=== PATIENT | female | born 1950 | race Caucasian/White ===

== ENCOUNTER 2019-06-15 10:12 | Emergency (ER) | payer OTHER, SELFPAY ==
[2019-06-15 10:35] VITALS: BP 173/93; PULSE 54; RESP 13; TEMP 36.3; O2SAT 96
--- NOTE | 2019-06-15 10:36 | DI.RAD.S_ITS ---
PROCEDURE: XR ANKLE RT MIN 3V INDICATIONS: injury TECHNIQUE: 3 views of the ankle were acquired. COMPARISON: None. FINDINGS: Bones: There is minimally displaced fracture seen involving the distal lateral malleolus. No additional fractures are detected. Age-appropriate bony degenerative changes are seen. The talar dome demonstrates no pati abnormality. Soft tissues: No soft tissue swelling is seen. IMPRESSION: Nondisplaced distal lateral malleolar fracture seen. Dictated by: Alfie Solares M.D. on 06/15/2019 at 10:12 Approved by: Alfie Solares M.D. on 06/15/2019 at 10:13
--- NOTE | 2019-06-15 11:42 | ED_ITS ---
HPI - Extremity Injury (Lower) <DOMINIK Fortune - Last Filed: 06/15/19 12:38> General Chief Complaint: Extremity Injury, Lower Stated Complaint: right ankle might be broke happened on 06/13/19 Time Seen by Provider: 06/15/19 11:00 Source: patient Mode of arrival: Ambulatory Limitations: no limitations History of Present Illness HPI Narrative: The patient is a 69-year-old female nonsmoker with history of myasthenia gravis diagnosed 2 days ago who presents with a chief complaint of right ankle pain. 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 She states that her right ankle hurts, especially in the outside. She denies any previous injuries to her ankle. She has been using ice and Tylenol she states her pain is very well controlled with Tylenol. She has been using an old air splint that she found, as well as a ski pole for support. She denies hitting her head any neck or back pain or any other injuries from the fall. She has taken Tylenol and Motrin, applied ice. She is concerned that it is still hurting so she came to the emergency department. She states that she felt many pops and cracks. She states that she has extensive bruising on her right lower leg Review of Systems <TONY Fortune - Last Filed: 06/15/19 12:38> Review of Systems Narrative: GENERAL: Denies chills, fatigue, malaise, fever, sweats. HEENT: Denies sinus pain, ear pain, sore throat, difficulty swallowing, dizziness. RESPIRATORY: Denies dyspnea, cough, wheezing, hemoptysis, sputum. CARDIOVASCULAR: Denies chest pain, palpitations, orthopnea, edema, GASTROINTESTINAL: Denies nausea, vomiting, abdominal pain, diarrhea, constipation, melena. : Denies dysuria, frequency, incontinence, hematuria, urinary retention. MUSCULOSKELETAL: See HPI SKIN: See HPI NEUROLOGIC: Denies weakness, headache, numbness, change in speech, confusion, seizures, incoordination. PSYCHIATRIC: No concerning psychosocial issues. 12 point review of systems is negative except for those stated above Patient History <DOMINIK Fortune - Last Filed: 06/15/19 12:38> Medical History Myasthenia gravis (Acute) Exam <DOMINIK Fortune - Last Filed: 06/15/19 12:38> Narrative Exam Narrative: GENERAL: This is a well-nourished, well-developed patient, in no acute distress HEAD: Atraumatic. Normocephalic. No temporal or scalp tenderness. EYES: Pupils equal round and reactive. Extraocular motions intact. No scleral icterus. No injection or drainage. ENT: Nose without bleeding, purulent drainage or septal hematoma. Throat without erythema, tonsillar hypertrophy or exudate. Uvula midline. Airway patent. NECK: Trachea midline. No JVD or lymphadenopathy. Supple, nontender, no meningeal signs. CARDIOVASCULAR: Regular rate and rhythm RESPIRATORY: No cough. No increased respiratory effort. No accessory muscle use. EXTREMITIES: General pain to palpation lateral aspect of right ankle. Able to flex and extend right ankle, the reduced range of motion. Positive pedal pulses. Slight edema noted. BACK: Nontender without deformity or crepitance. No flank tenderness. NEURO: AOx3. Interactive. Age appropriate. SKIN: Diffuse ecchymosis noted over lateral aspect of right ankle, no laceration or abrasion. Skin is intact. Initial Vital Signs Initial Vital Signs: Vital Signs Temperature 97.4 F L 06/15/19 10:35 Pulse Rate 54 L 06/15/19 10:35 Respiratory Rate 13 06/15/19 10:35 Blood Pressure 173/93 H 06/15/19 10:35 Pulse Oximetry 96 06/15/19 10:35 <Germania Aviles DO - Last Filed: 06/16/19 07:12> Initial Vital Signs Initial Vital Signs: Vital Signs Temperature 97.4 F L 06/15/19 10:35 Pulse Rate 54 L 06/15/19 10:35 Respiratory Rate 13 06/15/19 10:35 Blood Pressure 173/93 H 06/15/19 10:35 Pulse Oximetry 96 06/15/19 10:35 Procedures <DOMINIK Fortune - Last Filed: 06/15/19 12:38> Orthopedic Splinting/Casting Injury #1: Side: right Lower Extremity Injury Location: ankle Lower Extremity Immobilizer: boot orthosis Other Orthopedic Equipment: crutches Post splinting neuro exam: intact Post splinting vascular exam: intact Placed by: Nursing Course <DOMINIK Fortune - Last Filed: 06/15/19 12:38> Orders Ordered: Discontinued Medications Acetaminophen (Tylenol) 975 mg PO NOW ONE Stop: 06/15/19 11:43 Last Admin: 06/15/19 11:48 Dose: 975 mg Documented by: IMANI Reevaluation(s) Reevaluation #1: Discussed positive fracture on x-ray with patient. She states her pain is well controlled and is not need anything in addition to the Tylenol especially given her myasthenia gravis concerns. Discussed splinting, follow up with Orthopedics, nonweightbearing. Time: 11:45 Vital Signs Vital signs: Vital Signs - 8 hr 06/15/19 10:35 Temperature 97.4 F L Pulse Rate 54 L Respiratory Rate 13 Blood Pressure 173/93 H Pulse Oximetry 96 <Germania Aviles DO - Last Filed: 06/16/19 07:12> Orders Ordered: Discontinued Medications Acetaminophen (Tylenol) 975 mg PO NOW ONE Stop: 06/15/19 11:43 Last Admin: 06/15/19 11:48 Dose: 975 mg Documented by: IMANI Vital Signs Vital signs: Vital Signs - 8 hr 06/15/19 10:35 Temperature 97.4 F L Pulse Rate 54 L Respiratory Rate 13 Blood Pressure 173/93 H Pulse Oximetry 96 MDM - Extremity Injury (Lower) <DOMINIK Fortune - Last Filed: 06/15/19 12:38> Imaging Data ankle xray : Radiologist's impression: [place] [address] XRay Report Signed Patient: Abelino Blount#: [id number] : 1950cct:[id number] Age/Sex: 69 / FDate of Service: 06/15/19 Loc: ED Accession Number: [id number] Procedure: XR ankle RT min 3V Ordering Provider: Germania Aviles D.O. PROCEDURE: XR ANKLE RT MIN 3V INDICATIONS: injury TECHNIQUE: 3 views of the ankle were acquired. COMPARISON: None. FINDINGS: Bones: There is minimally displaced fracture seen involving the distal lateral malleolus. No additional fractures are detected. Age-appropriate bony degenerative changes are seen. The talar dome demonstrates no pati abnormality. Soft tissues: No soft tissue swelling is seen. IMPRESSION: Nondisplaced distal lateral malleolar fracture seen. Dictated by: Alfie Solares M.D. on 06/15/2019 at 10:12 Approved by: Alfie Solares M.D. on 06/15/2019 at 10:13 [facility] Narrative Medical decision making narrative: The patient is a 69-year-old female who presents with a chief complaint of an isolated ankle injury after ground level fall on . X-ray shows a nondisplaced lateral malleolar fracture. Patient declined any pain medicine, stating that her Tylenol was working very well and she did need anything. Ice was applied. Dr Aviles viewed x-rays, and suggested walking boot with crutches and orthopedic follow-up. This was range w ith the patient. She remained neurovascularly intact throughout her stay in the emergency department. She declined pain medication prescription. I discussed at length rest ice compression elevation, nonweightbearing, orthopedic follow- up. Patient has no questions or concerns upon discharge and states understanding of return precautions of any acute concerns as well as follow-up care. Discharge Plan Departure Patient Disposition: Home Clinical Impression: Ankle fracture, lateral malleolus, closed Qualifiers: Encounter type: initial encounter Fracture alignment: nondisplaced Laterality: right Qualified Code(s): S82.64XA - Nondisplaced fracture of lateral malleolus of right fibula, initial encounter for closed fracture Discharge Date/Time: 06/15/19 12:44 Instructions: How to Use Crutches, DI for Ankle Fracture, How To Perform RICE (Rest, Ice, Compress, Elevate) Activity Restrictions/Additional Instructions: Unfortunately you have a fracture of your outside ankle, but it is nondisplaced. This does not rule out soft tissue injury such as a ligament or tendon Please use rest ice compression elevation as well as [id number] pain medications as needed and able. Please follow-up with [facility]. I have given you the contact information. I also suggest following up with primary care provider. Please come back to emergency department for any acute concerns such as decreased circulation to her toes or foot Referrals: [facility] [Provider Group]
[2019-06-15] MEDS: ACETAMINOPHEN 325 MG TABLET 975 MG PO (11:48)
[2019-06-15 12:43] VITALS: BP 168/88; PULSE 60; RESP 16; O2SAT 97
== END 2019-06-15 12:44 | disposition home or self-care (01) ==
PROVIDERS: Emergency Provider Nurse Practitioner Family
DX: S82.64XA Nondisplaced fracture of lateral malleolus of right fibula, initial encounter for closed fracture (principal); W18.40XA Slipping, tripping and stumbling without falling, unspecified, initial encounter; Y99.0 Civilian activity done for income or pay
CPT/HCPCS: 29580; 73610; 99283

== ENCOUNTER → 2023-11-27 12:20 | Outpatient (CLI) | payer MEDICARE, OTHER, SELFPAY ==
--- NOTE | 2023-11-27 12:23 | DI.MRI.S_ITS ---
PROCEDURE: MR KNEE RT WO CON INDICATIONS: RIGHT KNEE PAIN TECHNIQUE: Noncontrast sagittal PD fast spin echo and T2 fast spin echo with fat saturation, sagittal 3-D FLASH with fat saturation; coronal T1 spin echo and PD fast spin echo with fat saturation, and axial PD fast spin echo with fat saturation through the knee. COMPARISON: [facility] [place], CR, XR KNEE 4+ VIEWS RIGHT, 11/16/2023, 13:14. FINDINGS: Image quality: Excellent. Menisci: In the medial meniscus, there is a small oblique tear of the meniscus body. There is mild extrusion of the medial meniscus body. In the lateral meniscus, there is full-thickness tear of the posterior root, with the posterior horn and the meniscus body displaced into the intercondylar notch. There is complex tear of the anterior horn of the lateral meniscus. Cruciate ligaments: The anterior and posterior cruciate ligaments appear intact. Medial structures: The medial collateral ligament appears intact. The posterior oblique ligament, semimembranosus tendon insertions, oblique popliteal ligament, and meniscocapsular junction appear intact. Visualized portions of the pes anserinus tendons appear normal. No abnormal bursal fluid. Lateral structures: The lateral collateral ligament, long and short heads of the biceps femoris tendon appear intact. The popliteus tendon appears normal; the popliteofibular ligament appears intact. The posterosuperior and anteroinferior popliteomeniscal fascicles appear intact. The arcuate and fabellofibular ligaments appear intact, on either side of the lateral inferior geniculate artery. Iliotibial band appears normal. Anterior structures: The quadriceps and patellar tendon are unremarkable. Marked prepatellar subcutaneous edema. The medial and lateral patellofemoral ligaments are unremarkable. Bones and cartilage: There is mild chondral thinning in the medial patellar facet. Cartilage of the trochlea is unremarkable. In the medial compartment, there is mild chondral thinning in the weight-bearing portion of the femoral condyle. In the lateral compartment, there is mild chondral thinning in the nonweightbearing portion of the femoral condyle with mild subchondral marrow edema, degenerative. No acute fracture. Joint space: Small knee effusion. Small popliteal cyst. Mild tendinosis of the distal semimembranosus tendon. Mild subcutaneous edema of the anterolateral knee. The popliteal vasculature is unremarkable. IMPRESSION: 1. Small oblique tear of the medial meniscus body. 2. Complex tear of the lateral meniscus with the posterior horn and the meniscus body displaced into the intercondylar notch. 3. Mild tricompartmental chondrosis. Dictated by: Evangelina Lopez M.D. on 11/27/2023 at 13:52 Approved by: Evangelina Lopez M.D. on 11/27/2023 at 14:06
== END ==
PROVIDERS: PCP Family Medicine; Referring Provider Orthopaedic Surgery Adult Reconstructive Orthopaedic Surgery; Visit Provider Orthopaedic Surgery Adult Reconstructive Orthopaedic Surgery
DX: S83.271A Complex tear of lateral meniscus, current injury, right knee, initial encounter (principal); S83.241A Other tear of medial meniscus, current injury, right knee, initial encounter; M23.91 Unspecified internal derangement of right knee; M94.261 Chondromalacia, right knee
CPT/HCPCS: 73721

== ENCOUNTER 2025-02-09 10:47 | Emergency (ER) | payer MEDICARE, OTHER, SELFPAY ==
[2025-02-09] VITALS (12 sets, daily range): BP systolic 150–223; BP diastolic 73–127; PULSE 61–70; RESP 15–24; TEMP 36.7–36.9; O2SAT 92–99; BMI 34.5
--- NOTE | 2025-02-09 11:22 | DI.RAD.S_ITS ---
PROCEDURE: XR KNEE RT 1TO2V INDICATIONS: fall, pain TECHNIQUE: 3 views of the knee were acquired. COMPARISON: None. FINDINGS: Bones: No fractures or dislocations. No suspicious bony lesions. Soft tissues: No joint effusion. No suspicious soft tissue calcifications. IMPRESSION: No acute bony abnormality or significant effusion. Arthritic joint space narrowing Approved by: Keegan Evans M.D. on 02/09/2025 at 11:08
--- NOTE | 2025-02-09 11:22 | DI.RAD.S_ITS ---
PROCEDURE: XR SHOULDER RT MIN 2V INDICATIONS: fall, pain TECHNIQUE: 3 views of the shoulder were acquired. COMPARISON: None. FINDINGS: Bones: No fractures or dislocations. No suspicious bony lesions. Visualized ribs appear intact. Soft tissues: No suspicious soft tissue calcifications. IMPRESSION: No acute bony abnormality. Approved by: Keegan Evans M.D. on 02/09/2025 at 11:10
--- NOTE | 2025-02-09 11:22 | DI.RAD.S_ITS ---
PROCEDURE: XR HUMERUS RT 2V INDICATIONS: fall, pain TECHNIQUE: 2 views of the humerus were acquired. COMPARISON: None. FINDINGS: Bones: No fractures or dislocations. No suspicious bony lesions. Soft tissues: No suspicious soft tissue calcifications. IMPRESSION: No acute bony abnormality. Approved by: Keegan Evans M.D. on 02/09/2025 at 11:04
--- NOTE | 2025-02-09 12:20 | EKG_ITS ---
[address] [address] Test Date: 2025-02-09 Pat Name: Rama Blount Department: Room: Gender: Female [employer] Attendant: DEEPTHI : 1950 Requested By: Order Number: [id number] Reading MD: Aaron Cavazos Measurements Intervals [place] Rate: 63 P: 37 OR: 210 QRS: 13 QRSD: 92 T: 41 QT: 422 QTc: 431 Interpretive Statements Sinus rhythm with 1st degree AV block Electronically Signed On 02-21-2025 8:28:39 PDT by Aaron Cavazos
[2025-02-09 12:22] LABS: Add Manual Diff / Slide Review NO; Hematocrit 43.5 % (36-46); Hemoglobin 14.9 g/dL (12.0-16.0); Lymphocytes Absolute Auto 1700 /uL (1100-4500); Mean Corpuscular HGB Conc 34.3 % (30-36); Mean Corpuscular Hemoglobin 31.1 PG (26-34); Mean Corpuscular Volume 90.7 fL (80-100); Platelet Count 313 X10^3/uL (150-400)
[2025-02-09 12:30] LABS: Blood Urea Nitrogen 13 mg/dL (7-17); Calcium 9.3 mg/dL (8.4-10.2); Carbon Dioxide 25 mmol/L (22-32); Chloride 107 mmol/L (98-107); Estimated Glomerular Filt Rate > 60 mL/min (>60); Glucose 97 mg/dL (70-99); HEMOLYSIS < 15 (0-50); Potassium 4.2 mmol/L (3.4-5.1); Sodium 138 mmol/L (137-145)
[2025-02-09] MEDS: OXYCODONE/ACETAMINOPHEN 5/325 TABLET 1 TAB PO (12:56)
--- NOTE | 2025-02-09 13:39 | ED_ITS ---
HPI - Fall General Chief Complaint: Fall Stated Complaint: Fell, injured right arm and leg Time Seen by Provider: 02/09/25 11:46 Source: patient Mode of arrival: Wheelchair History of Present Illness HPI Narrative: 75 years old female came today complaining of right knee main, right upper arm pain, right shoulder pain after the fall yesterday when she was hit by her dog to her right knee and fell. She denied any head injury, neck pain, back pain, abdominal pain, chest pain, shortness of breath, nausea vomiting, loss of consciousness or taking blood thinners. She reported history of meniscus surgery left knee 2022. Related Data Previous Rx's ?Medication ?Instructions ?Recorded hydrocodone 5 mg-acetaminophen 325 0.5 tab PO Q8H PRN pain #7 tabs 02/09/25 mg tablet Allergies Allergy/AdvReac Type Severity Reaction Status Date / Time magnesium Allergy Myastenia Verified 02/09/25 11:08 Gravis Review of Systems Review of Systems Narrative: Positive for right shoulder pain, right upper arm pain and right knee pain. Fall. Negative for chest pain, back pain, headache, head injury, loss of consciousness, neck pain, nausea vomiting, abdominal pain. Patient History Medical History (Updated 02/09/25 @ 13:35 by Froilan Mccallum MD) Myasthenia gravis Social History Smoking Status: Current every day smoker Smoking Status: Current every day smoker tobacco type: cigarettes Exam Narrative Exam Narrative: GENERAL: Cooperative. No acute distress. Alert. HEAD: Atraumatic. Normocephalic. EYES: Extraocular motions intact. No scleral icterus. No injection or drainage. NECK: Trachea midline. Non tender CARDIOVASCULAR: Regular rate and rhythm without murmurs, gallops, or rubs. RESPIRATORY: Clear to auscultation. Breath sounds equal bilaterally. No wheezes, rales, or rhonchi. GASTROINTESTINAL: Abdomen soft, non-tender, nondistended. EXTREMITIES: Decreased range of motion of the right knee movement and right shoulder movement. Tenderness on palpation of the right shoulder in her right knee without deformity. Mild swelling of the right knee. BACK: Nontender without deformity or crepitance. No flank tenderness. NEURO: AOx3. Normal sensation in both arms and legs. SKIN: No rash or erythema of visible areas Initial Vital Signs Initial Vital Signs: Vital Signs Temperature 98.4 F 02/09/25 11:08 Pulse Rate 64 02/09/25 11:08 Respiratory Rate 16 02/09/25 11:08 Blood Pressure 223/100 H 02/09/25 11:08 Pulse Oximetry 96 02/09/25 11:08 Oxygen Delivery Method Room Air 02/09/25 11:08 Course Orders Ordered: Discontinued Medications Oxycodone/Acetaminophen (Oxycodone/Acetaminophen 5/325 Tablet) 1 tab PO NOW ONE Stop: 02/09/25 12:54 Last Admin: 02/09/25 12:56 Dose: 1 tab Documented By: JOSE Vital Signs Vital signs: Vital Signs - 8 hr 02/09/25 11:08 02/09/25 11:22 02/09/25 11:22 Temperature 98.4 F Pulse Rate 64 68 Respiratory Rate 16 Blood Pressure 223/100 H 217/95 H Pulse Oximetry 96 Oxygen Delivery Method Room Air 02/09/25 11:30 02/09/25 11:31 02/09/25 11:31 Temperature Pulse Rate 64 61 Respiratory Rate Blood Pressure 200/86 H Pulse Oximetry 93 94 Oxygen Delivery Method 02/09/25 11:46 02/09/25 11:46 02/09/25 12:00 Temperature Pulse Rate 64 Respiratory Rate Blood Pressure 173/76 H 170/127 H Pulse Oximetry 92 Oxygen Delivery Method 02/09/25 12:00 02/09/25 12:17 02/09/25 12:17 Temperature Pulse Rate 69 68 Respiratory Rate 24 Blood Pressure 174/82 H Pulse Oximetry 97 98 Oxygen Delivery Method 02/09/25 12:31 02/09/25 12:45 02/09/25 13:00 Temperature Pulse Rate 64 61 68 Respiratory Rate 17 22 20 Blood Pressure 155/73 H 150/84 H Pulse Oximetry 99 94 96 Oxygen Delivery Method Room Air 02/09/25 13:30 02/09/25 14:00 Temperature 98.0 F Pulse Rate 64 70 Respiratory Rate 24 15 Blood Pressure 150/84 H Pulse Oximetry 96 98 Oxygen Delivery Method MDM - Fall Lab Data 02/09/25 12:13 02/09/25 12:13 Labs: Lab Results 02/09/25 Range/Units 12:13 WBC 9.6 (4.5-11.0) X10^3/uL RBC 4.79 (4.0-5.2) X10^6/uL Hgb 14.9 (12.0-16.0) g/dL Hct 43.5 (36-46) % MCV 90.7 (80-100) fL MCH 31.1 (26-34) PG MCHC 34.3 (30-36) % RDW 13.4 (11.6-14.8) % Plt Count 313 (150-400) X10^3/uL Neut % (Auto) 69.9 (50-75) % Lymph % (Auto) 17.5 L (25-40) % [place] % (Auto) 9.6 (3-14) % Eos % (Auto) 2.5 (2-4) % Baso % (Auto) 0.5 (0-2) % Neut # (Auto) 6700 (1427-6871) /uL Lymph # (Auto) 1700 (8489-4160) /uL [place] # (Auto) 900 (0-900) /uL Eos # (Auto) 200 (0-450) /uL Baso # (Auto) 0 (0-100) /uL Sodium 138 (137-145) mmol/L Potassium 4.2 (3.4-5.1) mmol/L Chloride 107 (98-107) mmol/L Carbon Dioxide 25 (22-32) mmol/L BUN 13 (7-17) mg/dL Creatinine 0.60 (0.52-1.04) mg/dL Estimated GFR > 60 (>60) mL/min BUN/Creatinine Ratio 21.7 (6-22) Glucose 97 (70-99) mg/dL Calcium 9.3 (8.4-10.2) mg/dL Imaging Data Right shoulder x-ray: Radiologist's Impression: PROCEDURE: XR SHOULDER RT MIN 2V INDICATIONS: fall, pain TECHNIQUE: 3 views of the shoulder were acquired. COMPARISON: None. FINDINGS: Bones: No fractures or dislocations. No suspicious bony lesions. Visualized ribs appear intact. Soft tissues: No suspicious soft tissue calcifications. IMPRESSION: No acute bony abnormality. Approved by: Keegan Evans M.D. on 02/09/2025 at 11:10 Right knee x-ray: Radiologist's Impression: PROCEDURE: XR KNEE RT 1TO2V INDICATIONS: fall, pain TECHNIQUE: 3 views of the knee were acquired. COMPARISON: None. FINDINGS: Bones: No fractures or dislocations. No suspicious bony lesions. Soft tissues: No joint effusion. No suspicious soft tissue calcifications. IMPRESSION: No acute bony abnormality or significant effusion. Arthritic joint space narrowing Right humerus x-ray: Radiologist's Impression: PROCEDURE: XR HUMERUS RT 2V INDICATIONS: fall, pain TECHNIQUE: 2 views of the humerus were acquired. COMPARISON: None. FINDINGS: Bones: No fractures or dislocations. No suspicious bony lesions. Soft tissues: No suspicious soft tissue calcifications. IMPRESSION: No acute bony abnormality. Approved by: Keegan Evans M.D. on 02/09/2025 at 11:04 ECG Data Interpretation: EKG showed normal sinus rhythm at 63 beats per minute with first-degree AV block without ischemic ST-T changes. MDM Narrative Medical decision making narrative: 75 years old female came today after the fall yesterday and complaint of right shoulder pain, right upper arm pain and right knee pain. She had history of right knee surgery 2022. On exam showed mild swelling without deformity of the right knee. Limitation range of motion of the right shoulder and right knee. No deformity of the right shoulder. Her neurovascular exam was normal on both right arm and right leg with 2+ right DP pulse. Normal sensation in both arms. I reviewed the x-ray of the right shoulder, right humerus, right knee showed no acute finding. She was put on knee immobilizer. He was given Percocet in the ED and sent home with Vicodin half tablet every 8 hour as needed. Asked her to set up follow up with her PCP and her orthopedist outpatient. Return to the ED precaution was given. Her CBC, BMP were normal. Discharge Plan Departure Patient Disposition: Home Clinical Impression: Muscle strain of right shoulder, Right knee sprain, Fall Instructions: DI for Knee Sprain, DI for Shoulder Sprain Activity Restrictions/Additional Instructions: Please continue knee immobilizer right knee for the next 2-4 days and tried to go back to routine activities as soon as you can. Please set up your orthopedist for follow-up for knee injury since you had meniscus surgery before. Please set up primary care doctor for follow up in the next 1-2 weeks. Please come back to the emergency room if any worsening symptoms including but not limited to worsening swelling, worsening pain, fever, nausea vomiting. Prescriptions: New hydrocodone-acetaminophen 5-325 mg tablet 0.5 tab PO Q8H PRN (Reason: pain) Qty: 7 0RF Referrals: Josemanuel Copeland DO [Primary Care Provider, Family Practice] Stand Alone Forms: Patient Portal/API
--- NOTE | 2025-02-09 14:03 | PC.NURSE ---
patient states has had tingling in leg since the injury today, no change with immobilizer.
== END 2025-02-09 14:20 | disposition home or self-care (01) ==
PROVIDERS: Emergency Provider Emergency Medicine; PCP Family Medicine
DX: S86.811A Strain of other muscle(s) and tendon(s) at lower leg level, right leg, initial encounter (principal); S46.911A Strain of unspecified muscle, fascia and tendon at shoulder and upper arm level, right arm, initial encounter; M79.621 Pain in right upper arm; I44.0 Atrioventricular block, first degree; W18.30XA Fall on same level, unspecified, initial encounter; Z98.890 Other specified postprocedural states
CPT/HCPCS: 36415; 73030; 73060; 73560; 80048; 85025; 93005; 99284